=== PATIENT | male | born 1945 | race Caucasian/White ===

== ENCOUNTER → 2018-03-13 16:58 | Outpatient (CLI) | payer MEDICARE ==
[2018-03-13 17:34] LABS: LDL-HDL RATIO 1.8 ratio (1.5-3.5)
== END | disposition home or self-care (01) ==
LOC: D.LABREF 16:58
PROVIDERS: Internal Medicine Cardiovascular Disease
DX: I10 Essential (primary) hypertension (principal)

== ENCOUNTER → 2018-04-11 08:34 | Outpatient (CLI) | payer MEDICARE | END | disposition home or self-care (01) | LOC: D.HCCARDIO 08:34 | DX: R07.89 Other chest pain (principal) ==

== ENCOUNTER 2018-04-24 12:00 | Outpatient (CLI) | payer MEDICARE ==
[~2018-04-24] VITALS: Ht 175.3 cm; Wt 79.5 kg
--- NOTE | ~2018-04-24 | HEMODYNAMI ---
PATIENT:CARRIE HENRY MEDICAL RECORD: [id number] : 43 LOCATION:[facility] ADMISSION DATE: 04/24/18 Generatedon:04/24/201815:48 Patient name: CARRIE HENRY Patient #: [id number] SSN: : 1945 Date of study: 04/24/2018 Page: Of Hemodynamic Procedure Report Patient Data Patient Demographics Procedure consent was obtained First Name: CARRIE Gender: Male Last Name: ELAINE : 1945 Patient #: [id number] Age: 73 year(s) Race: Unknown Additional ID: [id number] Contact details [address]: [address] [place] [address] State: [place] City: [place] Zip code: [address] Past Medical History Allergies: No known allergies Admission Admission Data Admission Date: 04/24/2018 Admission Time: 12:00 Lab Results Lab Result Date: 04/24/2018 Lab Result Time: 0:00 Biochemistry Name Units Result Min Max BUN mg/dl 21 --(----)-* 7 18 Creatinine mg/dl 1.1 --(--*-)-- 0.6 1.3 CBC Name Units Result Min Max Hemoglobin g/dl 15.2 --(-*--)-- 13.5 17.5 Procedure Procedure Types Cath Procedure Diagnostic Procedure LHC LHC w/Coronaries w/Grafts Sedation Charges Moderate Sedation up to 45 minutes PCI Procedure Coronary Stent Coronary Stent Initial Procedure Description Procedure Date Procedure Date: 04/24/2018 Procedure Start Time: 14:54 Procedure End Time: 15:44 Procedure Staff Name Function Hakeem Schrader MD Performing Physician Vinita Luther RT Monitor Jeni Ann RN Nurse Selene Jewell RT Scrub Perez Donis RN Pole Framer Machine Procedure Data Cath Procedure Fluoroscopy Diagnostic fluoroscopy Total fluoroscopy Time: time: 13.1 min 13.1 min Diagnostic fluoroscopy Total fluoroscopy dose: dose: 1603 mGy 1603 mGy Contrast Material Contrast Material Type Amount (ml) Isovue 300 200 Entry Location Entry Primary Successful Side Size Upsize Upsize Entry Closure Succes sful Closure Location (Fr) 1 (Fr) 2 (Fr) Remarks Device Remarks Femoral Right 5 Fr 6 Fr Exoseal artery Short Estimated blood loss: 10 ml Diagnostic catheters Device Type Used For End Catheter Placement MULTIPACK JL 4.0 5Fr Procedure catheter DIAGNOSTIC AR MOD 5Fr Procedure Catheter ([id number]) DIAGNOSTIC IM 5Fr Procedure catheter ([id number]) MULTIPACK Pigtail 5 Fr Procedure catheter Procedure Complications No complications Procedure Medications Medication Administration Route Dosage 0.9% NaCl I.V. 100 ml/hr Oxygen etCO2 Nasal cannula 2 l/min Lidocaine 2% added to field 20 Heparin Flush Bag added to field 2 bags (1000units/500ml NS) Versed I.V. 2 mg Fentanyl I.V. 50 mcg Versed I.V. 2 mg Fentanyl I.V. 50 mcg Heparin Bolus I.V. 8000 units Nitroglycerin IC/IA I.C. 100 mcg Nitroglycerin IC/IA I.C. 100 mcg Plavix P.O. 600 mg Hemodynamics Rest Heart Rate: 54 (bpm) Pressure Samples Time Site Value (mmHg) Purpose Heart Use Rate(bpm) 15:04 LV 134/2,21 Snapshot 54 15:04 AO 144/61(95) Pullback 58 15:04 LV 134/1,26 Pullback 58 Gradients Valve Time Site 1 Site 2 Mean SEP/DFP Peak To Heart Use (mmHg) (sec/min) Peak Rate (mmHg) (bpm) Aortic 15:04 LV AO 0 58 134/1,26 144/61(95) Calculations Valve P-P Mean Valve Index Valve Source Name Gradient Area Flow (cm2) Aortic 0 0 Snapshots Pre Cath Intra NCS Post Cath Vital Signs Time Heart Resp SPO2 etCO2 NIBP (mmHg) Rhythm Pain Sedation Rate (ipm) (%) (mmHg) Status Level (bpm) 14:35:11 57 17 98 36.1 166/81(111) SB 0 (11) 10(A) , No pain 14:39:35 49 16 98 35.4 134/65(104) SB 0 (11) 10(A) , No pain 14:44:53 51 17 98 33.1 132/74(113) SB 0 (11) 10(A) , No pain 14:49:09 51 15 98 35.4 134/68(94) SB 0 (11) 10(A) , No pain 14:54:08 51 19 99 33.1 131/71(81) SB 0 (11) 10(A) , No pain 14:58:24 50 23 98 33.8 130/68(105) SB 0 (11) 9(A) , No pain 15:03:25 53 15 98 35.3 129/67(112) SB 0 (11) 9(A) , No pain 15:07:41 53 15 98 35.3 133/67(97) SB 0 (11) 9(A) , No pain 15:11:57 51 16 98 35.4 132/67(87) SB 0 (11) 9(A) , No pain 15:16:15 55 15 98 36.1 130/65(88) SB 0 (11) 9(A) , No pain 15:20:33 59 15 97 34.6 118/62(86) SB 0 (11) 9(A) , No pain 15:24:45 55 15 97 33.8 124/62(83) SB 0 (11) 9(A) , No pain 15:28:59 56 16 98 33.9 129/65(89) SB 0 (11) 9(A) , No pain 15:33:15 57 16 98 33.1 132/66(92) SB 0 (11) 9(A) , No pain 15:37:29 55 16 98 32.4 135/72(99) SB 0 (11) 9(A) , No pain 15:41:45 58 16 96 30.8 122/70(90) SB 0 (11) 10(A) , No pain Medications Time Medication Route Dose Verified Delivered Reason Notes Effectiveness by by 14:34:16 0.9% NaCl I.V. 100 Hakeem Jeni used for ml/hr Raciel Ann environmental compliance specialist 14:34:23 Oxygen etCO2 2 Hakeem Jeni used for Nasal l/min Raciel Ann procedure cannula RN 14:34:28 Lidocaine 2% added 20ml Hakeem Hakeem for local to vial Raciel Schrader MD anesthetic field 14:34:34 Heparin Flush added 2 Hakeem Hakeem used for Bag to bags Raciel Schrader MD procedure (1000units/500ml field NS) 14:49:37 Versed I.V. 2 mg Hakeem Jeni for sedation Raciel Ann RN 14:49:42 Fentanyl I.V. 50 Hakeem Jeni for sedation mcg Raciel Ann RN 14:54:28 Versed I.V. 2 mg Hakeem Jeni for sedation Raciel Ann RN 14:54:32 Fentanyl I.V. 50 Hakeem Jeni for sedation mcg Raciel Ann RN 15:11:43 Heparin Bolus I.V. 8000 Hakeem Jeni for verif ied units Raciel Ann anticoagulation with Dr. SHAWN Schrader 15:18:32 Nitroglycerin I.C. 100 Hakeem Hakeem for IC/IA mcg Raciel Schrader MD vasodilation 15:37:31 Nitroglycerin I.C. 100 Hakeem Hakeem for IC/IA mcg Raciel Schrader MD vasodilation 15:42:54 Plavix P.O. 600 Hakeem Jeni for mg Raciel Ann antiplatelet RN therapy Procedure Log Time Note 14:19:55 Time tracking: Regular hours (M-F 7:00 - 5:00) 14:20:00 Plan of Care:Hemodynamics will remain stable., Cardiac rhythm will remain stable., Comfort level will be maintained., Respiratory function will remain adequate., Patient/ family verbilizes understanding of procedure., Procedure tolerated without complication., Recovers from procedure without complications.. 14:25:24 Perez Donis RN sent for patient. Start room use. 14:29:52 Patient received from Pre/Post Procedure Room to CCL 1 Alert and oriented. Tansferred to table in Supine position. 14:29:53 Warm blankets applied, and tanisha hugger turned on for patient comfort. 14:29:54 Correct patient and procedure confirmed by team. 14:29:55 Signed procedure consent form obtained from patient. 14:29:56 ECG and BP/O2 sat monitors applied to patient. 14:29:57 Full Disclosure recording started 14:33:58 Vital chart was started 14:34:07 H&P Date Dictated: 04/23/2018 Within 30 days and on chart., H&P Addendum completed by physician on day of procedure. (MUST COMPLETE FOR ALL OUTPATIENTS). 14:34:09 Pre-procedure instructions explained to patient. 14:34:09 Pre-op teaching completed and patient verbalized understanding. 14:34:10 Family in patients room. 14:34:12 Patient NPO since Midnight. 14:34:16 0.9% NaCl 100 ml/hr I.V. was administered by Jeni Ann RN; used for procedure; 14:34:21 Patient allergic to No known allergies 14:34:23 Oxygen 2 l/min etCO2 Nasal cannula was administered by Jeni Ann RN; used for procedure; 14:34:24 Is the patient allergic to Iodine/contrast media? No. 14:34:27 Is patient on blood thinner?No 14:34:28 Lidocaine 2% 20ml vial added to field was administered by Hakeem Schrader MD; for local anesthetic; 14:34:28 Patient diabetic? No. 14:34:31 Previous problem with sedation/anesthesia? No ? 14:34:32 Snore? Yes 14:34:33 Sleep apnea? Yes 14:34:34 Heparin Flush Bag (1000units/500ml NS) 2 bags added to field was administered by Hakeem Schrader MD; used for procedure; 14:34:34 Deviated septum? No 14:34:34 Opens mouth fully? Yes 14:34:35 Sticks out tongue? Yes 14:34:39 Airway obstruction? No ? 14:34:43 Dentures? No ? 14:34:46 Pre procedure: right dorsailis pedis pulse 1+ Palpable, but thready & weak; easily obliterated 14:34:48 Patient pain scale 0/10 ?. 14:34:53 IV patent on arrival in right antecubital with 0.9% NaCl at [facility]. 14:36:42 Lab Result : BUN 21 mg/dl 14:36:42 Lab Result : Creatinine 1.1 mg/dl 14:36:42 Lab Result : Hemoglobin 15.2 g/dl 14:36:46 Lab results completed and on chart. 14:36:50 Right groin area was prepped with chlora-prep and draped in sterile fashion 14:36:52 Alarms reviewed by R. N. 14:36:52 Sharps counted by scrub and verified by R.N. 14:36:54 Use device set Femoral Dx 14:36:55 ACIST Syringe (44128) opened to sterile field. 14:36:56 Bag Decanter (2002S) opened to sterile field. 14:36:58 ACIST Hand Control (56971) opened to sterile field. 14:36:59 ACIST Manifold (76982) opened to sterile field. 14:37:00 Tegaderm 4 x 4 (1626W) opened to sterile field. 14:37:03 Medline Cath Pack ([id number]) opened to sterile field. 14:37:03 DIAGNOSTIC WIRE .035 260cm J wire (939431) opened to sterile field. 14:37:04 DIAGNOSTIC Multipack 5Fr catheter set (KG3682) opened to sterile field. 14:37:06 SHEATH 5FR Prospect (LKV215) opened to sterile field. 14:48:14 Zero performed for pressure channel P1 14:49:09 --------ALL STOP TIME OUT------ 14:49:10 Final Timeout: patient, procedure, and site verified with staff and physician. All members of the team are in agreement. 14:49:11 Right groin site verified by team. 14:49:14 Physical assessment completed. ASA score P 2 - A patient with mild systemic disease as per Hakeem Schrader MD. 14:49:17 Sedation plan: IV Moderate Sedation Medication:Versed, Fentanyl 14:49:37 Versed 2 mg I.V. was administered by Jeni Ann RN; for sedation; 14:49:42 Fentanyl 50 mcg I.V. was administered by Jeni Ann RN; for sedation; 14:53:22 Procedure started. 14:54:05 Local anesthetic to right femoral artery with Lidocaine 2% by Hakeem Schrader MD.INITIAL ACCESS ONLY 14:54:28 Versed 2 mg I.V. was administered by Jeni Ann RN; for sedation; 14:54:32 Fentanyl 50 mcg I.V. was administered by Jeni Ann RN; for sedation; 14:55:09 A 5 Fr sheath was inserted into the Right Femoral artery 14:55:30 A MULTIPACK JL 4.0 5Fr catheter was advanced over the wire and used for Procedure. 14:56:51 LCA angiography performed. 14:56:56 Catheter exchanged over wire. 14:57:31 A DIAGNOSTIC AR MOD 5Fr Catheter ([id number]) was advanced over the wire and used for Procedure. 14:58:07 SVG to RCA angiography performed. 14:58:37 RCA angiography performed. 15:00:15 Catheter exchanged over wire. 15:00:48 A DIAGNOSTIC IM 5Fr catheter ([id number]) was advanced over the wire and used for Procedure. 15:02:04 KIM to LAD angiography performed. 15:02:47 Catheter exchanged over wire. 15:03:48 A MULTIPACK Pigtail 5 Fr catheter was advanced over the wire and used for Procedure. 15:03:59 LV gram done using LACEY 15:04:01 Injector settings: Ml/sec: 10, Volume: 20, 15:04:22 LV hemodynamics recorded. 15:04:34 EF : 55 % 15:05:17 Aortic Root visualized 15:05:19 Catheter exchanged over wire. 15:07:08 SHEATH 6FR Prospect (LQB511) opened to sterile field. 15:07:09 BMW 300cm Straight Seneca 2 wire ([id number]) opened to sterile field. 15:07:09 INFLATOR Merit BasixCompak (IV8852) opened to sterile field. 15:07:25 TUBING High Pressure Extension Tubing (Raciel) ([id number]) opened to sterile field. 15:07:47 GUIDE 6FR XBLAD 3.5 catheter ([id number]) opened to sterile field. 15:08:25 Sheath upsized to a 6 Fr Short. 15:10:34 6 Fr XBLAD 3.5 guide catheter was inserted over the wire 15:11:43 Heparin Bolus 8000 units I.V. was administered by Jeni Ann RN; for anticoagulation; verified with Dr. Schrader 15:13:17 300 BMW 300 wire advanced. 15:13:19 Wire advanced across lesion. 15:16:30 Place stent Inflation Number: 1 A RIN RX 3.0 x 18 stent ([id number]) was prepped and advanced across the Prox CX. The stent was deployed at 21 BERYL for 0:10 (min:sec). 15:16:47 Stent catheter was removed intact over wire. 15:18:32 Nitroglycerin IC/IA 100 mcg I.C. was administered by Hakeem Schrader MD; for vasodilation; 15:24:32 LUGE Straight 300cm 0.014 guide wire ([id number]) opened to sterile field. 15:24:53 LUGE WIRE wire advanced A MADHURI 15:32:38 The RIN OTW 2.5 x 22 stent ([id number]) was advanced then removed because of failure to cross lesion 15:33:06 BMW WIRE REMOVED 15:33:36 Inflate balloon Inflation number: 1 A EMERGE OTW 2.0 x 20 balloon ([id number]) was prepped and advanced across the Mid CX, then inflated to 10 BERYL for 0:10 (min:sec). 15:34:03 Inflation number: 2 The EMERGE OTW 2.0 x 20 balloon ([id number]) was reinflated across the Mid CX, to 12 BERYL for 0:10 (min:sec). 15:34:10 Balloon removed over the wire. 15:37:08 Place stent Inflation Number: 3 A RIN OTW 2.5 x 22 stent ([id number]) was prepped and advanced across the Mid CX. The stent was deployed at 12 BERYL for 0:10 (min:sec). 15:37:12 Stent catheter was removed intact over wire. 15:37:31 Nitroglycerin IC/IA 100 mcg I.C. was administered by Hakeem Schrader MD; for vasodilation; 15:40:22 Wire removed. 15:40:23 Guide catheter removed. 15:40:26 EXOSEAL 6Fr (EX600) opened to sterile field. 15:41:24 Sheath removed intact; hemostasis achieved with Exoseal to the Right Femoral artery. 15:41:30 Procedure ended.(Physican Out) 15:41:41 Fluoroscopy time 13.10 minutes. 15:41:45 Flurop Dose total: 1603 15:41:45 Fluoroscopy dose: 1603 mGy 15:41:49 Contrast amount:Isovue 300 200ml. 15:41:50 Sharps counted by scrub and verified by R.N. 15:41:53 Post-op/insertion site Right Radial artery dressed using a 4 x 4 and Tegaderm. 15:41:55 Post-procedure physical assessment completed. ASA score P 2 - A patient with mild systemic disease as per Hakeem Schrader MD. 15:42:00 Post procedure rhythm: sinus tachycardia 15:42:03 Estimated blood loss: 10 ml 15:42:04 Post procedure instruction explained to patient.Patient verbalizes understanding. 15:42:04 Patient needs reinforcement of post procedure teaching. 15:42:54 Plavix 600 mg P.O. was administered by Jeni Ann RN; for antiplatelet therapy; 15:42:56 Procedure type changed to Cath procedure, Diagnostic procedure, LHC, LHC w/Coronaries w/Grafts, Sedation Charges, Moderate Sedation up to 45 minutes, PCI procedure, Coronary Stent, Coronary Stent Initial 15:43:33 Procedure and supply charges have been captured, reviewed, submitted and are correct. 15:43:35 Procedure Complication : No complications 15:44:23 Vital chart was stopped 15:44:24 See physician's report for complete and final results. 15:44:25 Report given to Pre/Post Procedure Room. 15:44:28 Patient transfered to Pre/Post Procedure Room with Bed. 15:44:33 Procedure ended. 15:44:33 Full Disclosure recording stopped 15:44:37 End room use (Document Last) Intervention Summary Intervention Notes Time ActionType Lesion and Equipment Used Action# Pressure Duration Attributes 15:16:30 Place stent Prox CX RIN RX 3.0 x 1 21 00:10 18 stent ([id number]) 15:32:38 Discard RIN OTW 2.5 x Stent 22 stent ([id number]) 15:33:36 Inflate Mid CX EMERGE OTW 2.0 1 10 00:10 balloon x 20 balloon ([id number]) 15:34:03 Reinflate Mid CX EMERGE OTW 2.0 2 12 00:10 balloon x 20 balloon ([id number]) 15:37:08 Place stent Mid CX RIN OTW 2.5 x 3 12 00:10 22 stent ([id number]) Device Usage Item Name Manufacture Quantity Catalog Number Hospital Part Current Minimal Lot# / Charge Number Stock Stock Serial# Code ACIST Syringe Acist 1 56276 079990 980196 151418 20 (75647) Medical Systems Inc Bag Decanter Microtek 1 2001S 235591 42234 324045 5 (2001S) Medical Inc. ACIST Hand Acist 1 91154 055020 017928 944704 5 Control Medical (69136) Systems Inc ACIST Manifold Acist 1 28192 709578 898714 730449 5 (69001) Medical Systems Inc Tegaderm 4 x 4 3M 1 1626W 517080 091674 000418 5 (1626W) Medline Cath Medline 1 [id number] 145509 04870 249418 5 Pack ([id number]) DIAGNOSTIC St Roman 1 169774 168327 891912 416819 30 WIRE .035 260cm J wire (591481) DIAGNOSTIC Cardinal 1 DX9507 943145 59746 822627 30 Multipack 5Fr Health catheter set (KL1141) SHEATH 5FR Terumo 1 CZY055 543645 857101 345587 5 Prospect (VQD347) MULTIPACK JL Cardinal 1 243161 5 4.0 5Fr Health catheter DIAGNOSTIC AR Cardinal 1 [id number] 313336 574185 931216 15 MOD 5Fr Health Catheter (407417J) DIAGNOSTIC IM Cardinal 1 442714P 323594 781377 453298 5 5Fr catheter Health (934440R) MULTIPACK Cardinal 1 046727 5 Pigtail 5 Fr Health catheter SHEATH 6FR Terumo 1 VDP824 461863 424326 933085 40 Prospect (QSL465) BMW 300cm Monique 1 5060634 163605 980202 251866 5 Straight Vascular Seneca 2 wire (5780106) INFLATOR Merit Merit 1 MX7853 741129 262756 359558 15 BasixCompak Medical (AC2514) TUBING High Merit 1 [id number] 525806 19568 637479 10 Pressure Medical Extension Tubing (Schrader) ([id number]) GUIDE 6FR Cardinal 1 [id number] 948618 801904 654316 10 XBLAD 3.5 Health catheter (63279887) RIN RX 3.0 x Medtronic 1 [id number] 655386 7210861 352772 5 18 stent ([id number]) LUGE Straight [place]nest 1 [id number] 041812 642991 053208 5 300cm 0.014 Scientific guide wire (51563123) RIN OTW 2.5 x Medtronic 1 [id number] 567282 41740 848209 5 [id number] 22 stent ([id number]) EMERGE OTW 2.0 Birdsnest 1 [id number] 851523 759995 320693 5 [id number] x 20 balloon Scientific ([id number]) EXOSEAL 6Fr Cardinal 1 EX600 710973 491049 864863 10 (EX600) Health Signature Audit Kirkman Stage Time Signature Unsigned Intra-Procedure 04/24/2018 Vinita Luther 3:48:25 PM RT(R) Signatures Monitor : Vinita Luther Signature : RT Date : Time : [place] [id number] [facility] [place] [address]
[2018-04-24] MEDS ORDERED: ZETIA10 MG PO (12:22)
[2018-04-24] MEDS ORDERED: ZOCOR20 MG PO (12:23)
[2018-04-24] MEDS ORDERED: MAXZIDE 75/501 TAB PO (12:23)
[2018-04-24] MEDS ORDERED: LOTENSIN20 MG PO (12:23)
[2018-04-24] MEDS ORDERED: CO Q-10200 MG PO (12:24)
[2018-04-24] MEDS ORDERED: AMBIEN5 MG PO (12:24)
[2018-04-24] MEDS ORDERED: BAYER CHEWABLE81 MG PO (12:24)
[2018-04-24] MEDS ORDERED: SUPER B COMPLE150 MG PO (12:25)
[2018-04-24] MEDS ORDERED: OMEGA-3100 MG PO (12:25)
[2018-04-24 12:33] VITALS: BP 157/60; Ht 175.3 cm; Wt 79.5 kg
[2018-04-24 13:03] LABS: BASOPHILS 0.5 % (0-2); EOSINOPHILS 2.7 % (0-7); HEMATOCRIT 42.8 % (42.0-54.0); HEMOGLOBIN 15.2 g/dL (13.5-17.5); IMMATURE GRANULOCYTES 0.3 % (0-5); LYMPHOCYTES 24.9 % (15-50); MCH 34.2 pg (26.0-34.0); MCHC 35.5 g/dL (31.0-37.0); MCV 96.4 fL (80.0-100.0); MONOCYTES 10.9 % (2-11); NEUTROPHILS 60.7 % (40-80); PLATELET COUNT 119 10x3/uL (130-400); RBC 4.44 10x6/uL (4.20-6.10); RDW 12.2 % (11.5-14.5); WBC 6.4 10x3/uL (4.8-10.8)
[2018-04-24 13:04] LABS: ANION GAP 13.4 mmol/L (8-16); CALCIUM 9.5 mg/dL (8.5-10.1); CARBON DIOXIDE 28.7 mmol/L (21.0-32.0); CREATININE - SERUM 1.1 mg/dL (0.6-1.3); POTASSIUM - SERUM 4.1 mmol/L (3.5-5.1)
[2018-04-24] MEDS ORDERED: PLAVIX75 MG PO (15:52)
--- NOTE | 2018-04-24 16:15 | NUR ---
PATIENT AWAKE, SIPPING WATER. PRESENT AT BEDSIDE. VSS ON 2L NASAL CANNULA. RIGHT GROIN DRESSING IS CDI, NO S/S OF BLEEDING OR HEMATOMA.
--- NOTE | 2018-04-24 16:45 | NUR ---
PATIENT AWAKE, PRESENT AT BEDSIDE. VSS ON 1L NASAL CANNULA. RIGHT GROIN DRESSING IS CDI, NO S/S OF BLEEDING OR HEMATOMA.
--- NOTE | 2018-04-24 17:00 | NUR ---
PATIENT AWAKE, VSS ON ROOM AIR. RIGHT GROIN DRESSING IS CDI, NO S/S OF BLEEDING OR HEMATOMA.
--- NOTE | 2018-04-24 17:30 | NUR ---
PATIENT AWAKE, EATING A TURKEY SANDWICH. VSS ON ROOM AIR. RIGHT GROIN DRESSING IS CDI, NO S/S OF BLEEDING OR HEMATOMA. NO N/V.
--- NOTE | 2018-04-24 18:00 | NUR ---
PATIENT RESTING, VSS ON ROOM AIR. RIGHT GROIN DRESSING IS CDI, NO S/S OF BLEEDING OR HEMATOMA.
--- NOTE | 2018-04-24 18:30 | NUR ---
PATIENT AWAKE, VSS ON ROOM AIR. RIGHT GROIN DRESSING IS CDI, NO S/S OF BLEEDING OR HEMATOMA. HEAD OF BED ELEVATED TO 30 DEGREES.
--- NOTE | 2018-04-24 19:00 | NUR ---
HEAD OF BED ELEVATED TO 90 DEGREES. RIGHT GROIN DRESSING IS CDI, NO S/S OF BLEEDING OR HEMATOMA. VSS ON ROOM AIR. IV REMOVED. EDUCATION REGARDING DISCHARGE INSTRUCTIONS AND MEDICATION GIVEN TO PATIENT AND FAMILY AT THIS TIME, ALL QUESTIONS ANSWERED.
--- NOTE | 2018-04-24 19:20 | NUR ---
PATIENT TRANSPORTED VIA WHEELCHAIR TO CAR WITH SPOUSE DRIVING. ALL BELONGINGS WITH PATIENT. PATIENT ASSISTED WITH URINAL PRIOR TO DISCHARGE.
== END 2018-04-24 19:20 ==
LOC: D.CATH 12:00
PROVIDERS: Internal Medicine Cardiovascular Disease
DX: I25.119 Atherosclerotic heart disease of native coronary artery with unspecified angina pectoris (principal); I25.719 Atherosclerosis of autologous vein coronary artery bypass graft(s) with unspecified angina pectoris; Z01.812 Encounter for preprocedural laboratory examination
CPT/HCPCS: 93459; C9600